=== PATIENT | male | born 1955 | race Caucasian/White ===

== ENCOUNTER → 2018-05-12 | Outpatient (CLI) | payer OTHER ==
[~2018-05-12] MED LIST: LEVO-366 PO; LRT5 PO
--- NOTE | 2018-05-13 06:24 | PAP/PSG TECHNICIAN REPORT ---
Report Specialist Polysomnogram Report Study name: None Report date: 05/13/2018 Study date: 05/12/2018 Referring Physician: DR. JOHAN PARADA Name: LAKESHA ROBERT Interpreting Physician: Ragini Sin M.D. Date of : 1955 Report Specialist: Kay Murphy RPS. Sex: Male Age: 63 Study Type: PSG Weight: 173 lbs Height: 63 years, Height 6' 0" BMI: 23.46 Medications: ATORVASTATIN 20 MG, ALFUZOSIN 10 MG Patient History 63 yr-old male here for a baseline study. He has a history of snoring, witnessed apneas, and some daytime sleepiness. His [place] scale is 1. The test was started on room air. ETCO2 testing is included in this study. Room 1 Parameters Monitored NPSG: E1-M2, E2-M1, Fp1-M2, Fp2-M1, F3-M2, F4-M2, F4-M1, C3-M2, C4-M2, C4-M1, O1-M2, O2-M2, O2-M1, T3-M2, T4-M1, P3-M2, P4-M1, CHIN1, CHIN2, HR, EKG, Legs, PFLOW, SNOR, FLOW, CFLOW, Tidal Volume, THOR, ABDO, SpO2, PLTH, CPRESS, ETCO2 Wave, ETCO2, pH Sleep Architecture Sleep Stages Time at Lights Off 10:26:19 PM STAGES Time (min.) TST (%) Time at Lights On 5:42:49 AM Wake 282.5 -- Total Recording Time (TRT) 436.50 min. N1 51.5 33 Total Sleep Period (TSP) 306.0 min. N2 95.5 62 Total Sleep Time (TST) 154.0min. N3 0.0 0 Awake Time 282.5 min. REM 7.0 5 Wake after Sleep Onset 158.5 min. Sleep Efficiency (SE) 35 % Sleep Onset Latency (EAN) 124.0 min. Number of Stage 1 Shifts None Awakenings 30 Stage Changes 106 Number of REM periods 1 REM 7.0 5 REM Latency 299.0 min. NREM 147.0 95 Body Position Analysis Supine Right Left Side Prone Vertical Total Sleep Time (min.) 288.0 50.2 0.5 50.68 0.0 0.0 Total Sleep Time (%) 67% 33% 0% 33 0% N/A% Total Sleep Time REM (min.) 7.0 0.0 0.0 None 0.0 0.0 Total Sleep Time NREM (min.) 96.3 50.2 0.5 None 0.0 0.0 Intermittent Wake (min.) 184.7 72.6 25.2 None 0.0 0.0 Total Sleep Period (%) 71% None None None None None Arousals Myoclonus (PLM) * Events Count Index Events Count Index Spontaneous 27 11 Events Awake (PLMW) 316 67.1 Respiratory 31 14.4 Events Asleep w/ Arousal (PLMA) 6 2.3 PLM 6 2 Events Asleep w/o Arousal (PLMS) 55 21.4 Snoring 8 3 Total Asleep 61 23.8 Total 72 28 Total 377 52 Respiratory Analysis * CA OA MA CH H RERA Total Count 0 31 5 0 41 5 77 Index 0.0 12.1 1.9 0 16.0 2 31.9 Mean Duration 0.0 28.5 28.2 0.00 25.5 19.9 26.5 Longest Duration 0.0 50.6 42.4 0.00 42.4 23.6 56.9 Respiratory Event Summary Total Supine ~Supine Right Left Prone REM NREM Apneas Count 36 30 6 6 0 N/A 0 36 Index 14.0 17 7 7.2 0.0 N/A 0 15 Hypopneas (4% Desat) Count 41 27 14 13 1 N/A 0 41 Index 16.0 15.7 17 15.5 120.0 N/A 0.0 16.7 Apneas & All Hypopneas Count 77 57 20 19 1 N/A 0 77 Index 30.0 33 24 23 120 N/A 0.0 31.4 Respiratory Events (Orthopedic Technician+All Hyp+RERA) Count 77 62 20 19 1 N/A 0 77 Index 31.9 36 24 22.7 120.0 N/A 0.0 33.5 Respiratory Related Arousal Count 31 62 8 7 1 N/A 0 37 Index 14.4 17 9 8 120 N/A 0 15 Snoring Analysis Supine Right Left Prone REM NREM Total Snore duration 14.8 min Snores count 350 176 0 N/A 0 526 526 Snore mean duration 1.7 Sec Snores index 203 210 0 N/A 0.0 214.7 204.9 TST with snoring (%) 9.6% SpO2 Analysis Total REM NREM Awake <50% 0.0 min. 0.0 min. 0.0 min. 0.0 min. 51 - 60% 0.0 min. 0.0 min. 0.0 min. 0.0 min. 61 - 70% 0.0 min. 0.0 min. 0.0 min. 0.0 min. 71 - 80% 0.0 min. 0.0 min. 0.0 min. 0.0 min. 81 - 90% 22.3 min. 0.0 min. 11.6 min. 10.7 min. 91 - 100% 405.1 min. 7.0 min. 135.4 min. 262.7 min. Average 94 94 93 94 Minimum SpO2 82 93 82 82 Desaturation Event Index 16.2 0.0 31.0 9.8 # Desat. Events below 89% 25 N/A 18 7 Time(%) with Saturation below 89% 1.8 0.0 1.0 0.8 Time(min.) with Saturation below 89% 7.6 0.0 4.1 3.5 Heart Rate Analysis End Tidal CO2 Analysis Min (bpm) Max (bpm) Average (bpm) TSP (mins) % of TSP Awake 38 104 63 Above 55 mmHg 0.0 0.0 NREM 50 86 57 50-55 mmHg 0.0 0.0 REM 55 65 61 45-50 mmHg 0.0 0.0 Overall 50 86 57 40-45 mmHg 3.9 2.5 35-40 mmHg 71.8 46.6 30-35 mmHg 54.5 35.4 Average ETCO2 0.1 Supplemental O2 Values Minimum O2 level: None Value Start Time End Time Report Specialist Comments Mr. Robert slept in the right, left, and supine positions. No cardiac arrhythmias were noted. PLMs were noted. No bruxism noted. Snoring was noted and scored as a 2 on a scale of 1 through 5. (0=no snoring, 5=snoring loud enough to be heard through a closed door or down the [address] way) He awoke to use the restroom one time during the night. Mr. Robert stated that he did not sleep as well as at home. The final report will be interpreted and signed by a sleep physician. The completed physician report will then be placed in the patient medical record. Therapy (cm H2O) 0 TIB (min.) 436.5 TST (min.) 154.0 Sleep Onset (min.) 124.0 REM Onset From Sleep (min.) 299.0 Sleep Efficiency % 35 Wakefulness (%) 65 Wakefulness (min.) 282.5 NREM 1 (%) 33 NREM 1 (min.) 51.5 NREM 2 (%) 62 NREM 2 (min.) 95.5 NREM 3 (%) 0 NREM 3 (min.) 0.0 REM (%) 5 REM (min.) 7.0 # Arousals 72 Arousal Index 28 # Snore 526 Snore Index 204.9 AHI 30.0 AHI Supine 33 AHI Non-Supine 24 NREM AHI 31.4 REM AHI 0.0 RDI 31.9 # Obstructive Apnea 31 # Central Apnea 0 # Mixed Apnea 5 # Hypopneas 41 RERAs 5 Total Respiratory Events 90 Time Below SpO2 89% (min.) 4.1 Mean NREM SpO2 (%) 93 Mean REM SpO2 (%) 94 Mean Sleep SpO2 (%) 93 Min NREM SpO2 (%) 82 Min REM SpO2 (%) 93 Position Supine (min.) 288.0 Position Non-supine (min.) 50.7 LM Index Sleep 23.8 LM Index NREM 24.5 LM Index REM 8.6 Mean Heart Rate (bpm) 57 Min Heart Rate (bpm) 50
--- NOTE | 2018-06-04 12:35 | Sleep Study ---
Sleep Study Report Date of Service: 06/04/18 Sleep Study Report [facility] Diagnostic Polysomnogram Interp Report Study name: None Report date: 06/04/2018 Study date: 05/12/2018 Referring Physician: DR. JOHAN PARADA Name: LAKESHA ROBERT Interpreting Physician: Ragini Sin M.D. Date of : 1955 [employer] Director: Kay Murphy [facility]. Sex: Male Age: 63 Study Type: PSG Weight: 173 lbs Height: 63 years, Height 6' 0" BMI: 23.46 This patient was referred by DR. JOHAN PARADA. LAKESHA ROBERT, tested at 8: 08:49 PM on 05/12/2018, is a 63 year old male, date of 1955 who is 6' 0" and 173 lbs, with a BMI of 23.46, which is normal. This patient has an [place] Sleepiness Score of 1, which is normal. Study scored by: Ragini Sin M.D. IMPRESSION: 1-Severe obstructive sleep apnea syndrome. These respiratory events were associated with oxygen desaturations (yamilka of 82 %). 2-Abnormal sleep architecture likely due to respiratory events and first night effect. RECOMMENDATIONS: 1-CPAP titration study. 2-Avoidance of alcohol and sedatives. Past medical history: Hyperlipidemia Medications: Atorvastatin, Alfuzosin Sleep Study Summary Procedure: The study was attended continuously by a electronic technologist. The monitored parameters included: left (E1-M2) and right (E2-M1) EOG, frontal (F3- M2 & F4-M1), central (C3-M2 & C4-M1) and occipital (O1-M2 & O2-M1) EEG, mental and submental EMG, left and right anterior tibialis EMG, left and right extensor digitorum EMG, single ECG waveform, snoring, continuous airflow with thermistor and nasal pressure transducer, chest and abdominal effort, oxygen saturation, EtCO2, and body position via video monitoring. Hypopnea definition: The nasal pressure signal excursions (or those of the alternative hypopnea sensor) drop by 30% of baseline. The duration of this drop occurs for a period lasting at least 10 seconds. There is a 4 % desaturation from pre-event baseline or the event is associated with an arousal. At least 90 % of the event's duration must meet the amplitude reduction criteria for hypopnea. Sleep Data: This patient displayed delayed latency to sleep onset of 124.0 min., with disrupted sleep architecture with sleep stage percentages of 17% N1, 31% N2, 0% N3, and 2% REM, with reduced sleep efficiency of 35% and with Total Sleep Time of 154.0 minutes. Respiratory Data: 77 respiratory events were observed. The apnea-hypopnea index was 30.0 which is severe. The amounts of apneas/hypopneas are not evenly distributed throughout the study, with a non-REM RDI of 33.5 and a REM RDI of 0.0. Respiratory events were more frequent in the supine position. The longest respiratory event duration was 56.9 sec. Minimum NREM oxygen saturation was 82% ; minimum REM oxygen saturation was 93%. Time spent below SaO2 of 90% was 0.0 min. The time spent with SaO2 of 80-89% was 4 min. Snoring was noted to be present. Limb Movement: 61 limb movements were observed for an index of 23.8. Arousal: 72 arousals were observed, with a total index of 28. There were 27 spontaneous arousals, 31 respiratory arousals (respiratory arousal index of 14.4 ), and 6 limb movement arousals (limb movement arousal index of 2). Cardiac: The average heart rate during sleep was 61 beats per minute, with a range of 50 to 86. During wake, the heart rate ranged from 38 to 104 beats per minute. There were no arrhythmias noted. Edward-Hyatt breathing was absent. EEG: There were no epileptic form features reported. Behavioral Observation: The patient reported that their sleep for this study was shorter in duration and of poorer quality than usual. The patient did not display unusual behaviors. Thank you for the courtesy of this referral. Dr Ragini Sin Board Certified in Internal/ Sleep Medicine
== END | disposition home or self-care (01) ==
LOC: C.NEUR 20:00
PROVIDERS: ATTEND Family Medicine
DX: G47.33 Obstructive sleep apnea (adult) (pediatric) (principal)